=== PATIENT | female | born 1995 | race Caucasian/White ===

== ENCOUNTER 2022-04-25 12:04 | Emergency (ER) | payer MEDICAID ==
[~2022-04-25] VITALS: Ht 165.1 cm; Wt 47.6 kg
--- NOTE | 2022-04-25 12:13 | NUR ---
BIB boyfriend, LEFT SIDED ABDOMINAL PAIN X 3 WEEKS
--- NOTE | 2022-04-25 12:20 | NUR ---
refused to have IV line. at bedside
--- NOTE | 2022-04-25 12:21 | NUR ---
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
--- NOTE | 2022-04-25 12:33 | NUR ---
lab works cancelled per Dr. Flynn
[2022-04-25] MEDS ORDERED: CYCL5TAB PO (12:36)
[2022-04-25 12:40] LABS: BILIRUBIN,URINE NEGATIVE (NEGATIVE); COLOR,URINE YELLOW (YELLOW); LEUKOCYTE ESTERASE ,URINE TRACE (NEGATIVE); NITRITE, URINE NEGATIVE (NEGATIVE); PROTEIN,URINE NEGATIVE (NEGATIVE); UGLUCOSE NEGATIVE (NEGATIVE); UROBILINOGEN,URINE 0.2 EU/dL (0.2)
[2022-04-25 12:44] VITALS: BP 110/71
--- NOTE | 2022-04-25 12:44 | NUR ---
Patient discharged to home in stable condition. Written and verbal after care instructions given. Patient verbalizes understanding of instruction.
[2022-04-25 13:06] LABS: BACTERIA,URINE Few /HPF (None Seen); RBC,URINE 0-2 /HPF (0-2)
== END 2022-04-25 13:18 | disposition home or self-care (01) ==
LOC: ER 12:06
DX: S39.011A Strain of muscle, fascia and tendon of abdomen, initial encounter (principal); Z90.89 Acquired absence of other organs; Z79.899 Other long term (current) drug therapy; X58.XXXA Exposure to other specified factors, initial encounter; Y93.89 Activity, other specified; Y92.89 Other specified places as the place of occurrence of the external cause; Y99.8 Other external cause status
CPT/HCPCS: 81001; 84703-TC